=== PATIENT | male | born 1945 | race American Indian/Alaskan Native ===

== ENCOUNTER 2017-08-30 14:41 | Emergency (ER) | payer MEDICARE, MEDICAID ==
[2017-08-30 14:45] VITALS: BP 133/107
[2017-08-30 15:32] LABS: ANION GAP 12.8; CHLORIDE,CL 94 mmol/L (101-111); SODIUM,NA 128 mmol/L (135-145)
--- NOTE | 2017-08-30 16:17 | EDM.PDOC ---
ED HPI GENERAL MEDICAL PROBLEM - General Chief Complaint: Neuro Symptoms/Deficits Stated Complaint: IN BY AMBULANCE Time Seen by Provider: 08/30/17 15:45 Source of Information: Reports: Patient History Limitations: Reports: No Limitations - History of Present Illness INITIAL COMMENTS - FREE TEXT/NARRATIVE: This 71 yo male patient was brought to the ED due to a possible seizure. The patient reports that he slipped when he was walking and fell hitting the back of his head. The patient reports he had no loss of consciousness before, during or after the fall. The patient reports that he did not have a seizure, but has some pain in the back of his head. Other than that, the patient has no complaints at this time. Onset: Today Duration: Minutes:, Improving Location: Reports: Head (posterior head pain) Quality: Reports: Dull Severity: Mild Improves with: Reports: None Worsens with: Reports: None Context: Reports: Trauma (ground level fall with no loss of consciousness) Associated Symptoms: Reports: No Other Symptoms - Related Data Allergies Allergy/AdvReac Type Severity Reaction Status Date / Time No Known Allergies Allergy Verified 08/30/17 14:43 Home Meds: Home Meds ALPRAZolam [Xanax] 0.25 mg PO BEDTIME 10/02/14 [History] ALPRAZolam [Xanax] 0.5 mg PO BID 10/02/14 [History] Acetaminophen 650 mg PO Q6H PRN 10/02/14 [History] Alendronate Sodium [Fosamax] 70 mg PO WEEKLY 10/02/14 [History] Aspirin [Low Dose Aspirin EC] 1 tab PO DAILY 10/02/14 [History] Ibuprofen 400 tab PO BID 10/02/14 [History] Mag Hydrox/Al Hydrox/Simeth [Tami-Lanta] 5 ml PO QID PRN 10/02/14 [History] Magnesium Hydroxide [Milk of Magnesia] 1 oz PO Q48H PRN 10/02/14 [History] Nitroglycerin [Nitrostat] 1 tab SL ASDIRECTED PRN 10/02/14 [History] Ziprasidone HCl [Geodon] 60 mg PO BID 10/02/14 [History] guaiFENesin [Robitussin] 2 tsp PO Q6HR PRN 10/02/14 [History] lamoTRIgine [Lamictal] 300 mg PO BID 10/02/14 [History] levETIRAcetam [Keppra] 1,000 mg PO BID 10/02/14 [History] levETIRAcetam [Keppra] 500 mg PO BID 10/02/14 [History] Ibuprofen [Motrin] 600 mg PO TID PRN 06/12/15 [History] OLANZapine [ZyPREXA] 10 mg PO BID 06/12/15 [History] traMADol [Ultram] 50 mg PO BID PRN 06/12/15 [History] Sodium Chloride 1 gm PO ASDIRECTED 08/30/17 [History] Past Medical History HEENT History: Reports: Impaired Vision Other HEENT History: hx of vertigo recently Gastrointestinal History: Reports: GERD Musculoskeletal History: Reports: Osteoarthritis Neurological History: Reports: Headaches, Chronic, Head Trauma, Seizure, Vertigo Other Neuro History: Unspecified dementia Psychiatric History: Reports: Anxiety, Dementia, Psychosis Other Psychiatric History: Dementia with behavioral disturbance Dermatologic History: Reports: Seborrheic Dermatitis Other Dermatologic History: dermatitis Social & Family History - Family History Family Medical History: Noncontributory - Tobacco Use Smoking Status *Q: Current Every Day Smoker Years of Tobacco use: 20 Packs/Tins Daily: 0.5 - Caffeine Use Caffeine Use: Reports: None - Alcohol Use Days Per Week of Alcohol Use: 2 Number of Drinks Per Day: 24 Total Drinks Per Week: 48 - Recreational Drug Use Recreational Drug Use: No - Living Situation & Occupation Living situation: Reports: Extended Care Facility ED ROS GENERAL - Review of Systems Review Of Systems: ROS reveals no pertinent complaints other than HPI. ED EXAM, GENERAL - Physical Exam Exam: See Below Exam Limited By: No Limitations General Appearance: Alert, WD/WN, No Apparent Distress Eye Exam: Bilateral Eye: EOMI, Normal Inspection, PERRL Ears: Normal External Exam, Normal Canal, Hearing Grossly Normal, Normal TMs Nose: Normal Inspection, Normal Mucosa, No Blood Throat/Mouth: Normal Inspection, Normal Lips, Normal Teeth, Normal Gums, Normal Oropharynx, Normal Voice, No Airway Compromise Head: Other (the patient reports some tenderness to the posterior head, but there was no contusion or apparent hematoma) Neck: Normal Inspection, Supple, Non-Tender, Full Range of Motion Respiratory/Chest: No Respiratory Distress, Lungs Clear, Normal Breath Sounds, No Accessory Muscle Use, Chest Non-Tender Cardiovascular: Normal Peripheral Pulses, Regular Rate, Rhythm, No Edema, No Gallop, No JVD, No Murmur, No Rub GI/Abdominal: Normal Bowel Sounds, Soft, Non-Tender, No Organomegaly, No Distention, No Abnormal Bruit, No Mass (Male) Exam: Deferred Rectal (Males) Exam: Deferred Back Exam: Normal Inspection, Full Range of Motion, NT Extremities: Normal Inspection, Normal Range of Motion, Non-Tender, Normal Capillary Refill, No Pedal Edema Neurological: Alert, Oriented, CN II-XII Intact, Normal Cognition, Normal Gait, Normal Reflexes, No Motor/Sensory Deficits Psychiatric: Normal Affect, Normal Mood Skin Exam: Warm, Dry, Intact, Normal Color, No Rash Lymphatic: No Adenopathy Course - Vital Signs Last Recorded V/S: Last Vital Signs Temp 36.8 C 08/30/17 14:43 Pulse 76 08/30/17 14:43 Resp 18 08/30/17 14:43 BP 133/107 H 08/30/17 14:43 Pulse Ox 91 L 08/30/17 14:43 - Orders/Labs/Meds Orders: Active Orders 24 hr Category Date Time Status EKG Documentation Completion [RC] URGENT Care 08/30/17 14:37 Active KEPPRA [REF] Stat Lab 08/30/17 15:05 Received UA W/MICROSCOPIC [URIN] Stat Lab 08/30/17 15:57 Ordered Labs: Laboratory Tests 08/30/17 08/30/17 08/30/17 Range/Units 15:05 15:05 15:57 WBC 8.8 (5.0-10.0) 10^3/uL RBC 4.59 L (4.6-6.2) 10^6/uL Hgb 14.6 (14.0-18.0) g/dL Hct 42.3 (40.0-54.0) % MCV 92.2 (80-100) fL MCH 31.8 (27.0-34.0) pg MCHC 34.5 (33.0-35.0) g/dL Plt Count 207 (150-450) 10^3/uL Neut % (Auto) 60.8 (42.2-75.2) % Lymph % (Auto) 26.1 (20.5-50.1) % [place] % (Auto) 11.5 H (2-8) % Eos % (Auto) 1.3 (1.0-3.0) % Baso % (Auto) 0.3 (0.0-1.0) % Sodium 128 L (135-145) mmol/L Potassium 3.8 (3.6-5.0) mmol/L Chloride 94 L (101-111) mmol/L Carbon Dioxide 25.0 (21.0-31.0) mmol/L Anion Gap 12.8 BUN 7 (7-18) mg/dL Creatinine 0.7 (0.6-1.3) mg/dL Est Cr Clr Drug Dosing 93.15 mL/min Estimated GFR (MDRD) > 60 BUN/Creatinine Ratio 10.00 Glucose 114 H (74-105) mg/dL Calcium 9.6 (8.4-10.2) mg/dl Total Bilirubin 0.7 (0.2-1.0) mg/dL AST 31 (10-42) IU/L ALT 32 (10-60) IU/L Alkaline Phosphatase 57 (42-121) IU/L Troponin I < 0.02 (0.00-0.02) ng/ml Total Protein 8.4 H (6.7-8.2) g/dl Albumin 4.6 (3.2-5.5) g/dl Globulin 3.8 Albumin/Globulin Ratio 1.21 Urine Color Yellow (YELLOW) Urine Appearance Clear (CLEAR) Urine pH 7.0 (5.0-9.0) Ur Specific [place] 1.010 (1.005-1.030) Urine Protein Negative (NEGATIVE) Urine Glucose (UA) Negative (NEGATIVE) Urine Ketones Negative (NEGATIVE) Urine Occult Blood Negative (NEGATIVE) Urine Nitrite Negative (NEGATIVE) Urine Bilirubin Negative (NEGATIVE) Urine Urobilinogen 0.2 (0.2-1.0) mg/dL Ur Leukocyte Esterase Negative (NEGATIVE) Urine RBC 0-5 /HPF Urine WBC Not seen (0-5/HPF) /HPF Ur Epithelial Cells Rare /HPF Urine Bacteria Rare (0-FEW/HPF) /HPF Departure - Departure Time of Disposition: 17:10 Disposition: Home, Self-Care 01 Condition: Fair Clinical Impression: Contusion of head Qualifiers: Encounter type: initial encounter Contusion of head detail: scalp Qualified Code(s): S00.03XA - Contusion of scalp, initial encounter Fall Qualifiers: Encounter type: initial encounter Qualified Code(s): W19.XXXA - Unspecified fall, initial encounter - Discharge Information Instructions: Contusion, [id number] Forms: ED Department Discharge Care Plan Goals: The patient was advised of the examination, lab, EKG, x-ray and CT results during the visit. The patient was encouraged to continue to take his medications as directed. If the patient has any additional symptoms or concerns , the patient should visit his primary care facility or return to the emergency department. - My Orders Last 24 Hours: My Active Orders 08/30/17 14:37 EKG Documentation Completion [RC] URGENT 08/30/17 15:05 KEPPRA [REF] Stat 08/30/17 15:57 UA W/MICROSCOPIC [URIN] Stat - Assessment/Plan Last 24 Hours: My Active Orders 08/30/17 14:37 EKG Documentation Completion [RC] URGENT 08/30/17 15:05 KEPPRA [REF] Stat 08/30/17 15:57 UA W/MICROSCOPIC [URIN] Stat
--- NOTE | 2017-08-31 18:19 | EKG ---
08/30/2017 - EUNICE NAVA I reviewed the EKG and agree with the machine's reading. [facility] /[id number]
== END 2017-08-30 17:14 | disposition home or self-care (01) ==
LOC: DL.ED 14:41
DX: S00.03XA Contusion of scalp, initial encounter (principal); F17.210 Nicotine dependence, cigarettes, uncomplicated; Z79.899 Other long term (current) drug therapy; W01.198A Fall on same level from slipping, tripping and stumbling with subsequent striking against other object, initial encounter; Z79.82 Long term (current) use of aspirin; Y93.01 Activity, walking, marching and hiking
CPT/HCPCS: 36415; 70450; 71045; 80053; 80177; 81001; 84484; 85025; 93005; 93010; 99283; 99284

== ENCOUNTER 2017-08-31 23:57 | Emergency (ER) | payer MEDICARE, MEDICAID ==
[2017-09-01 00:08] VITALS: BP 97/56
[2017-09-01] MEDS ORDERED: Sodium Chloride 0.9% 1,000 ML IV ONE ×3 (00:19→03:07)
[2017-09-01] MEDS ORDERED: cefTRIAXone 1 GM Vial IVPUSH ONE (00:21)
[2017-09-01 00:55] LABS: ANION GAP 14.1; CHLORIDE,CL 93 mmol/L (101-111); SODIUM,NA 124 mmol/L (135-145)
[2017-09-01] MEDS ORDERED: Potassium Chloride 10 MEQ in Premix Bag 1 BAG IV ONE (01:16)
--- NOTE | 2017-09-01 02:36 | EDM.PDOC ---
ED HPI GENERAL MEDICAL PROBLEM - General Chief Complaint: Neurological Problem Stated Complaint: IN BY AMBULANCE Time Seen by Provider: 09/01/17 00:05 Source of Information: Reports: EMS History Limitations: Reports: Altered Mental Status - History of Present Illness INITIAL COMMENTS - FREE TEXT/NARRATIVE: ED via EMS with report of seizure. Patient hx of TBI was reported to EMS by family that patient has daily breakthrough seizures, Had not taken daily meds until given this robert after seizure. Patient als seen in ED yesterday following fall, Head CT done on that date that was negative. Patient drowsy but does respond to simple questions EMS reported on arrival saturation in 70'ws and rapid respiration, Improved with oxygen, patient admits to cough. Medical hx for dementia also - Related Data Allergies Allergy/AdvReac Type Severity Reaction Status Date / Time No Known Allergies Allergy Verified 09/01/17 00:36 Home Meds: Home Meds ALPRAZolam [Xanax] 0.25 mg PO BEDTIME 10/02/14 [History] ALPRAZolam [Xanax] 0.5 mg PO BID 10/02/14 [History] Acetaminophen 650 mg PO Q6H PRN 10/02/14 [History] Alendronate Sodium [Fosamax] 70 mg PO WEEKLY 10/02/14 [History] Aspirin [Low Dose Aspirin EC] 1 tab PO DAILY 10/02/14 [History] Ibuprofen 400 tab PO BID 10/02/14 [History] Mag Hydrox/Al Hydrox/Simeth [Tami-Lanta] 5 ml PO QID PRN 10/02/14 [History] Magnesium Hydroxide [Milk of Magnesia] 1 oz PO Q48H PRN 10/02/14 [History] Nitroglycerin [Nitrostat] 1 tab SL ASDIRECTED PRN 10/02/14 [History] Ziprasidone HCl [Geodon] 60 mg PO BID 10/02/14 [History] guaiFENesin [Robitussin] 2 tsp PO Q6HR PRN 10/02/14 [History] lamoTRIgine [Lamictal] 300 mg PO BID 10/02/14 [History] levETIRAcetam [Keppra] 1,000 mg PO BID 10/02/14 [History] levETIRAcetam [Keppra] 500 mg PO BID 10/02/14 [History] Ibuprofen [Motrin] 600 mg PO TID PRN 06/12/15 [History] OLANZapine [ZyPREXA] 10 mg PO BID 06/12/15 [History] traMADol [Ultram] 50 mg PO BID PRN 06/12/15 [History] Sodium Chloride 1 gm PO ASDIRECTED 08/30/17 [History] Past Medical History HEENT History: Reports: Impaired Vision Other HEENT History: hx of vertigo recently Gastrointestinal History: Reports: GERD Musculoskeletal History: Reports: Arthritis, Fracture, Osteoarthritis Neurological History: Reports: Headaches, Chronic, Head Trauma, Seizure, Vertigo Other Neuro History: Unspecified dementia Psychiatric History: Reports: Addiction, Anxiety, Dementia, Psychosis Other Psychiatric History: Dementia with behavioral disturbance Dermatologic History: Reports: Seborrheic Dermatitis Other Dermatologic History: dermatitis Social & Family History - Family History Family Medical History: Noncontributory - Tobacco Use Smoking Status *Q: Current Every Day Smoker Years of Tobacco use: 20 Packs/Tins Daily: 0.5 - Caffeine Use Caffeine Use: Reports: None - Alcohol Use Days Per Week of Alcohol Use: 2 Number of Drinks Per Day: 24 Total Drinks Per Week: 48 - Recreational Drug Use Recreational Drug Use: No - Living Situation & Occupation Living situation: Reports: Extended Care Facility ED ROS GENERAL - Review of Systems Review Of Systems: ROS reveals no pertinent complaints other than HPI. - Physical Exam Exam: See Below Exam Limited By: Altered Mental Status General Appearance: Lethargic Eye Exam: Bilateral Eye: EOMI, PERRL (3mm, sluggish) Ears: Normal External Exam, Normal TMs Throat/Mouth: Other (mucus membranes, dry) Head Exam: Atraumatic, Normocephalic Neck: Normal Inspection, Full Range of Motion Respiratory/Chest: Decreased Breath Sounds (bilateral) Cardiovascular: Regular Rate, Rhythm, Tachycardia GI/Abdominal: Normal Bowel Sounds, Soft Neuro Exam (Abbreviated): Normal Cognition, Confused (at times), Slow to Respond Back Exam: Normal Inspection Extremities: Normal Inspection Skin Exam: Warm, Dry, Intact, Normal Color, Tattoo(s) EKG INTERPRETATION Rhythm: NSR Course - Vital Signs Last Recorded V/S: Last Vital Signs Temp 98.8 F 09/01/17 02:00 Pulse 113 H 08/31/17 23:57 Resp 32 H 08/31/17 23:57 BP 97/56 L 08/31/17 23:57 Pulse Ox 89 L 08/31/17 23:57 - Orders/Labs/Meds Orders: Active Orders 24 hr Category Date Time Status EKG 12 Lead [EKG Documentation Completion] [RC] URGENT Care 09/01/17 01:15 Active CULTURE BLOOD [BC] Stat Lab 09/01/17 00:12 Received DRUG SCREEN URINE BIORAD [URCHEM] Stat Lab 09/01/17 02:49 Ordered UA W/MICROSCOPIC [URIN] Stat Lab 09/01/17 02:49 Ordered Labs: Laboratory Tests 09/01/17 09/01/17 09/01/17 Range/Units 00:12 00:12 00:12 WBC 11.4 H (5.0-10.0) 10^3/uL RBC 4.21 L (4.6-6.2) 10^6/uL Hgb 13.3 L (14.0-18.0) g/dL Hct 38.7 L (40.0-54.0) % MCV 91.9 (80-100) fL MCH 31.6 (27.0-34.0) pg MCHC 34.4 (33.0-35.0) g/dL Plt Count 184 (150-450) 10^3/uL Neut % (Auto) 93.7 H (42.2-75.2) % Lymph % (Auto) 3.0 L (20.5-50.1) % [place] % (Auto) 3.2 (2-8) % Eos % (Auto) 0.0 L (1.0-3.0) % Baso % (Auto) 0.1 (0.0-1.0) % Sodium 124 L (135-145) mmol/L Potassium 3.1 L (3.6-5.0) mmol/L Chloride 93 L (101-111) mmol/L Carbon Dioxide 20.0 L (21.0-31.0) mmol/L Anion Gap 14.1 BUN 11 (7-18) mg/dL Creatinine 1.0 (0.6-1.3) mg/dL Est Cr Clr Drug Dosing 69.96 mL/min Estimated GFR (MDRD) > 60 BUN/Creatinine Ratio 11.00 Glucose 125 H (74-105) mg/dL Lactic Acid 4.0 H (0.5-2.2) mmol/L Calcium 8.3 L (8.4-10.2) mg/dl Total Bilirubin 1.4 H (0.2-1.0) mg/dL AST 64 H (10-42) IU/L ALT 31 (10-60) IU/L Alkaline Phosphatase 41 L (42-121) IU/L Total Protein 6.8 (6.7-8.2) g/dl Albumin 3.6 (3.2-5.5) g/dl Globulin 3.2 Albumin/Globulin Ratio 1.13 Urine Color (YELLOW) Urine Appearance (CLEAR) Urine pH (5.0-9.0) Ur Specific [place] (1.005-1.030) Urine Protein (NEGATIVE) Urine Glucose (UA) (NEGATIVE) Urine Ketones (NEGATIVE) Urine Occult Blood (NEGATIVE) Urine Nitrite (NEGATIVE) Urine Bilirubin (NEGATIVE) Urine Urobilinogen (0.2-1.0) mg/dL Ur Leukocyte Esterase (NEGATIVE) Urine RBC /HPF Urine WBC (0-5/HPF) /HPF Ur Epithelial Cells /HPF Urine Bacteria (0-FEW/HPF) /HPF Fine Granular Casts (0/LPF) /LPF Urine Mucus /LPF Urine Opiates Screen (NEGATIVE) Ur Oxycodone Screen (NEGATIVE) Urine Methadone Screen (NEGATIVE) Ur Barbiturates Screen (NEGATIVE) U Tricyclic Antidepress (NEGATIVE) Ur Phencyclidine Scrn (NEGATIVE) Ur Amphetamine Screen (NEGATIVE) U Methamphetamines Scrn (NEGATIVE) Urine MDMA Screen (NEGATIVE) U Benzodiazepines Scrn (NEGATIVE) Urine Cocaine Screen (NEGATIVE) U Marijuana (THC) Screen (NEGATIVE) Ethyl Alcohol < 5 mg/dL 09/01/17 09/01/17 Range/Units 02:49 02:49 WBC (5.0-10.0) 10^3/uL RBC (4.6-6.2) 10^6/uL Hgb (14.0-18.0) g/dL Hct (40.0-54.0) % MCV (80-100) fL MCH (27.0-34.0) pg MCHC (33.0-35.0) g/dL Plt Count (150-450) 10^3/uL Neut % (Auto) (42.2-75.2) % Lymph % (Auto) (20.5-50.1) % [place] % (Auto) (2-8) % Eos % (Auto) (1.0-3.0) % Baso % (Auto) (0.0-1.0) % Sodium (135-145) mmol/L Potassium (3.6-5.0) mmol/L Chloride (101-111) mmol/L Carbon Dioxide (21.0-31.0) mmol/L Anion Gap BUN (7-18) mg/dL Creatinine (0.6-1.3) mg/dL Est Cr Clr Drug Dosing mL/min Estimated GFR (MDRD) BUN/Creatinine Ratio Glucose (74-105) mg/dL Lactic Acid (0.5-2.2) mmol/L Calcium (8.4-10.2) mg/dl Total Bilirubin (0.2-1.0) mg/dL AST (10-42) IU/L ALT (10-60) IU/L Alkaline Phosphatase (42-121) IU/L Total Protein (6.7-8.2) g/dl Albumin (3.2-5.5) g/dl Globulin Albumin/Globulin Ratio Urine Color Dark yellow (YELLOW) Urine Appearance Clear (CLEAR) Urine pH 6.0 (5.0-9.0) Ur Specific [place] 1.010 (1.005-1.030) Urine Protein 100 H (NEGATIVE) Urine Glucose (UA) Negative (NEGATIVE) Urine Ketones 15 H (NEGATIVE) Urine Occult Blood Large H (NEGATIVE) Urine Nitrite Negative (NEGATIVE) Urine Bilirubin Negative (NEGATIVE) Urine Urobilinogen 0.2 (0.2-1.0) mg/dL Ur Leukocyte Esterase Negative (NEGATIVE) Urine RBC 0-5 /HPF Urine WBC 0-5 (0-5/HPF) /HPF Ur Epithelial Cells Occasional /HPF Urine Bacteria Many H (0-FEW/HPF) /HPF Fine Granular Casts Few H (0/LPF) /LPF Urine Mucus Few H /LPF Urine Opiates Screen Negative (NEGATIVE) Ur Oxycodone Screen Negative (NEGATIVE) Urine Methadone Screen Negative (NEGATIVE) Ur Barbiturates Screen Negative (NEGATIVE) U Tricyclic Antidepress Negative (NEGATIVE) Ur Phencyclidine Scrn Negative (NEGATIVE) Ur Amphetamine Screen Negative (NEGATIVE) U Methamphetamines Scrn Negative (NEGATIVE) Urine MDMA Screen Negative (NEGATIVE) U Benzodiazepines Scrn Positive H (NEGATIVE) Urine Cocaine Screen Negative (NEGATIVE) U Marijuana (THC) Screen Negative (NEGATIVE) Ethyl Alcohol mg/dL Meds: Medications Discontinued Medications Generic Name Dose Route Start Last Admin Trade Name Ricky PRN Reason Stop Dose Admin Ceftriaxone Sodium 1 gm 09/01/17 00:21 09/01/17 00:26 Rocephin IVPUSH 09/01/17 00:22 1 gm ONETIME ONE Administration Sodium Chloride 1,000 mls @ 999 mls/hr 09/01/17 00:19 09/01/17 00:20 Normal Saline IV 09/01/17 01:19 999 mls/hr .BOLUS ONE Administration Sodium Chloride 1,000 mls @ 999 mls/hr 09/01/17 01:07 09/01/17 01:09 Normal Saline IV 09/01/17 02:07 999 mls/hr .BOLUS ONE Administration Potassium Chloride 10 meq/ 100 mls @ 100 mls/hr 09/01/17 01:16 09/01/17 01:29 Premix IV 09/01/17 02:15 100 mls/hr ONETIME ONE Administration Sodium Chloride 1,000 mls @ 200 mls/hr 09/01/17 03:07 09/01/17 03:13 Normal Saline IV 09/01/17 08:06 200 mls/hr .BOLUS ONE Administration - Radiology Interpretation Free Text/Narrative:: CXR bilateral airspace disease - Re-Assessments/Exams Free Text/Narrative Re-Assessment/Exam: 09/01/17 03:00 Patient drowsy on arrival arouses with verbal stimuli, answers questions appropriately. Oxygenation maintained with supplemental oxygen. BP slightly improved with fluids. Out of bed per self, unsteady. TC consult, Dr. Nova refer patient to for higher level of care. Dr. Johnston accepting of patient. Departure - Departure Time of Disposition: 03:20 Disposition: DC/Tfer to Acute Hospital 02 Clinical Impression: Hx of traumatic brain injury, Hyponatremia, Seizure disorder, Seizure, Hypokalemia, History of dementia Pneumonia Qualifiers: Pneumonia type: due to unspecified organism Laterality: bilateral Lung location : unspecified part of lung Qualified Code(s): J18.9 - Pneumonia, unspecified organism - Discharge Information Referrals: PCP,Unobtain [Primary Care Provider] - Forms: ED Department Discharge - My Orders Last 24 Hours: My Active Orders 09/01/17 00:12 CULTURE BLOOD [BC] Stat 09/01/17 01:15 EKG 12 Lead [EKG Documentation Completion] [] URGENT 09/01/17 02:49 DRUG SCREEN URINE BIORAD [URCHEM] Stat UA W/MICROSCOPIC [URIN] Stat - Assessment/Plan Last 24 Hours: My Active Orders 09/01/17 00:12 CULTURE BLOOD [BC] Stat 09/01/17 01:15 EKG 12 Lead [EKG Documentation Completion] [] URGENT 09/01/17 02:49 DRUG SCREEN URINE BIORAD [URCHEM] Stat UA W/MICROSCOPIC [URIN] Stat
--- NOTE | 2017-09-01 14:26 | EKG ---
09/01/2017 - EUNICE NAVA I reviewed the EKG and agree with the machine's reading. [facility] /[id number]
== END 2017-09-01 03:21 ==
LOC: DL.ED 23:57
DX: G40.909 Epilepsy, unspecified, not intractable, without status epilepticus (principal); E87.1 Hypo-osmolality and hyponatremia; E87.6 Hypokalemia; J18.9 Pneumonia, unspecified organism; F17.210 Nicotine dependence, cigarettes, uncomplicated; Z86.59 Personal history of other mental and behavioral disorders; Z87.820 Personal history of traumatic brain injury; Z79.899 Other long term (current) drug therapy
CPT/HCPCS: 36415; 71045; 80053; 80305; 81001; 83605; 85025; 87040; 93005; 93010; 96361; 96365; 96366; 96375; 99285; G0480; J0696; J3480; J7030